=== PATIENT | male | born 1990 | race Caucasian/White ===

== ENCOUNTER 2022-04-04 13:44 | Emergency (ER) | payer OTHER ==
[~2022-04-04] VITALS: Ht 170.2 cm; Wt 70.3 kg
== END 2022-04-04 15:59 | disposition home or self-care (01) ==
LOC: ER 13:44
DX: R21 Rash and other nonspecific skin eruption (principal); Z88.0 Allergy status to penicillin

== ENCOUNTER 2022-08-26 16:11 | Emergency (ER) | payer OTHER ==
[~2022-08-26] VITALS: Ht 167.6 cm; Wt 70.3 kg
[2022-08-26] MEDS ORDERED: WELLBUTRIN SR150 MG PO (17:15)
[2022-08-26] MEDS ORDERED: DEPAKOTE ER500 MG PO (17:15)
[2022-08-26] MEDS ORDERED: ZYRTEC10 M3 PO (17:16)
[2022-08-26] MEDS ORDERED: NAPR500T14 (17:16)
== END 2022-08-26 19:59 | disposition home or self-care (01) ==
LOC: ER 16:11
DX: L50.9 Urticaria, unspecified (principal); Z88.0 Allergy status to penicillin